=== PATIENT | male | born 1990 | race Hispanic/Latino ===

== ENCOUNTER 2018-10-30 18:36 | Emergency (ER) | payer BC | END 2018-10-30 19:35 | disposition home or self-care (01) | LOC: SCSER 18:36 | DX: H66.92 Otitis media, unspecified, left ear (principal); I10 Essential (primary) hypertension; F17.220 Nicotine dependence, chewing tobacco, uncomplicated; Z79.899 Other long term (current) drug therapy | CPT/HCPCS: 99283 ==